=== PATIENT | female | born 1975 | race Caucasian/White ===

== ENCOUNTER → 2017-02-22 | Outpatient (CLI) | payer BC ==
[~2017-02-22] MED LIST: ALBUTEROL17 GM INH; CARAFATE1 G PO; CARAFATE1 GM PO; DIAZEPAM PO; DICYCLOMINE HCL20 MG PO; DYAZIDE 371 CAP 37.5 PO; ESOMEPRAZOLE MA40 MG; ESTRACE1 M1 PO; ESTROGENS-METHYLTEST; HYDROCODON-ACE1 EAC5 PO; IBUPROFEN800 MG PO; LINZESS145 MCG PO; LORTAB 5/500 TA1 TA1 PO; MEDROL4 MG/DOSE- PO; MYRBETRIQ25 MG PO; NAPROSYN500 MG PO; NEURONTIN100 MG PO; PREVACID; PREVACID15 MG PO; PROTONIX PO; RESTORIL15 MG PO; SKELAXIN PO; VOLTAREN75 MG PO; ZOFRAN8 MG PO
--- NOTE | ~2017-02-22 | CT2 ---
[facility] A Service of [facility] & [facility] RADIOLOGY TEXT RESULTS PATIENT: RUBENS CRUZ LOCATION: [facility] : 73 UNIT #: [id number] AGE: [address]: Wander Nassar MD SEX: F ORDER DR: [id number] [facility] [address] [place], [place] [address] [id number] O MR#: [id number] [facility] #: [id number] NAME: RUBENS CRUZ : 1975 SEX: F STUDY DATE/TIME: 02/22/2017 11:24 UNIT: [facility] ROOM: STUDY DESCRIPTION: CT Abd and Pelv W Cont Attending Physician: Wander Nassar Jr., M.D. Referring Physician: Wander Nassar Jr., M.D. Ordering Physician: Wander Nassar Jr., M.D. Primary Care Physician: Mele Jin M.D. MEDICAL IMAGING REPORT This report is preliminary unless electronic signature is present EXAM CT of the abdomen and pelvis with contrast INDICATION Left lower quadrant pain for 4 years. It apparently is getting worse. Patient also reports some nausea for the past couple of months. She also reports epigastric pain for [address] images were obtained from the dome of the diaphragm through the symphysis pubis following the administration of oral and intravenous contrast material. This CT exam was performed with one or more of the following radiation dose reduction techniques: automatic exposure control, adjustment of mA and/or kV according to patient size, and iterative reconstruction. FINDINGS There is an 8.0 mm nodule identified within the right middle lobe as well as a stable subcentimeter nodule seen more laterally within the right middle lobe. The patient does have some mild mosaic attenuation which could reflect some mild air trapping. Stomach and proximal small bowel are within normal limits as are the adrenal glands and pancreas. I do think the patient has diffuse hepatic steatosis. Spleen appears unremarkable. I do not see any focal hepatic lesions. No free fluid or adenopathy is seen within the upper abdomen. There is no intra or extrahepatic biliary dilatation. Gallbladder is surgically absent. The appendix is visualized and is within normal limits. Uterus is surgically absent. Urinary bladder appears normal. This patient does have some colonic diverticulosis although I do not see any convincing evidence of diverticulitis on the current examination. No free fluid or adenopathy is seen within the pelvis. Review of bony STS. [facility] A Service of [facility] & [facility] RADIOLOGY TEXT RESULTS PATIENT: RUBENS CRUZ LOCATION: [facility] : 73 UNIT #: [id number] AGE: [address]: Wander Nassar MD SEX: F ORDER DR: coleman does not demonstrate any aggressive osseous abnormalities. Bilateral pars defects are noted at L5-S1 with some mild anterolisthesis seen. IMPRESSION 1. No definite acute intraabdominal or intrapelvic process is seen to account for the patient's symptomatology. There is some colonic diverticulosis without any convincing evidence of diverticulitis. 2. Diffuse hepatic steatosis. 3. Changes of prior cholecystectomy and hysterectomy. 4. The appendix is visualized and is within normal limits. 5. 8.0 mm nodule is identified within the right middle lobe. It is indeterminate and cannot be seen on the prior study although images probably did not extend that far cranially. I would suggestion short term CT followup in 3 months to document resolution or stability. Dictated by... Alicia Lang M.D. THIS IS AN ELECTRONICALLY VERIFIED REPORT Alicia Lang M.D. at 02/22/2017 4:41 PM LASHAUN/chely TD: 02/22/2017 15:34 JOB #: [id number] MEDICAL IMAGING REPORT Page 1 of 1 COPY
== END | disposition home or self-care (01) ==
LOC: CCAT 02-12 08:00
DX: R10.13 Epigastric pain (principal); G89.29 Other chronic pain; K57.30 Diverticulosis of large intestine without perforation or abscess without bleeding; K76.0 Fatty (change of) liver, not elsewhere classified; R91.1 Solitary pulmonary nodule; Z90.49 Acquired absence of other specified parts of digestive tract; Z90.710 Acquired absence of both cervix and uterus
CPT/HCPCS: 74177; Q9967

== ENCOUNTER → 2017-02-24 | Day surgery (SDC) | payer BC ==
--- NOTE | ~2017-02-24 | OR ---
Unit #: [id number] #: [id number] Patient: RUBENS CRUZ [id number] [address] [place], [place] [address] [id number] O MR#: [id number] NAME: RUBENS CRUZ ROOM: Date of Procedure: 02/24/2017 Admission Date: 02/24/2017 Surgeon: Wander Nassar Jr., M.D. : 1975 Attending Physician: Wander Nassar Jr., M.D. Primary Care Physician: Mele Jin M.D. OPERATIVE REPORT INDICATION FOR PROCEDURE The patient is a 41-year-old white female, who has had mid epigastric abdominal pain as well as right upper quadrant pain. There is a question of whether she may have a significant esophagitis versus occult ulcer disease. She is brought in this time for upper endoscopy at her request. She understands the procedure including the risk of perforation and bleeding, and consents. PREOPERATIVE DIAGNOSES Gastroesophageal reflux disease, abdominal pain, nausea, possible occult ulcer disease versus esophagitis. POSTOPERATIVE DIAGNOSES The patient was noted to have 1+ distal esophagitis and mild gastritis with a lax lower esophageal sphincter. ANESTHESIA MAC anesthesia. PROCEDURE PERFORMED Flexible fiberoptic esophagogastroduodenoscopy with antral biopsy for Helicobacter pylori. DESCRIPTION OF PROCEDURE The patient was positioned in Andino position with left side down. After being given MAC anesthesia, the Olympus XQ scope was passed through the proximal esophagus. The entire esophagus was examined. Proximal two-thirds appeared normal. In the area of the GE junction, there was 1+ distal esophagitis without stenosis. The scope was advanced through the GE junction and the cardia, and down to the fundic and antral region of the stomach, retroflexed back up to the area of the cardia. There was no evidence of any hiatal hernia present, but there was a lax LES. This was observed for approximately 3 to 5 minutes. The stomach distended well without evidence of rigidity. The scope was advanced down the prepyloric region, where there was some mild atrophic gastritis. A biopsy was taken from the antrum for H pylori without significant bleeding. The scope was advanced through the pylorus and the duodenal bulb and down to the second portion of the duodenum. The entire duodenal portion examination was within normal limits. The scope was slowly removed. The patient tolerated the procedure well and discharged in satisfactory condition. Unit #: [id number] #: [id number] Patient: RUBENS CRUZ Dictated by... Wander Nassar Jr., M.D. JMB/tarun TD: 03/11/2017 18:15 JOB #: [id number] OPERATIVE REPORT Page 1 of 1 X Wander Nassar MD X PROCEDURE OPERATIVE NOTE
== END | disposition home or self-care (01) ==
LOC: COPS 11:55
DX: K21.0 Gastro-esophageal reflux disease with esophagitis (principal); K29.70 Gastritis, unspecified, without bleeding; F17.210 Nicotine dependence, cigarettes, uncomplicated; M19.90 Unspecified osteoarthritis, unspecified site; K57.32 Diverticulitis of large intestine without perforation or abscess without bleeding; E66.9 Obesity, unspecified; Z68.36 Body mass index [BMI] 36.0-36.9, adult; Z88.5 Allergy status to narcotic agent; Z88.1 Allergy status to other antibiotic agents; Z88.8 Allergy status to other drugs, medicaments and biological substances; Z79.899 Other long term (current) drug therapy; Z90.49 Acquired absence of other specified parts of digestive tract; Z98.890 Other specified postprocedural states; Z90.710 Acquired absence of both cervix and uterus
CPT/HCPCS: 87077